=== PATIENT | female | born 1950 | race Caucasian/White ===

== ENCOUNTER 2021-11-23 10:49 | Outpatient (CLI) | payer MEDICARE | END 2021-11-23 10:50 | disposition home or self-care (01) | LOC: BICMAMMO 10:49 | PROVIDERS: ATTEND Family Medicine | DX: Z12.31 Encounter for screening mammogram for malignant neoplasm of breast (principal); Z13.820 Encounter for screening for osteoporosis; M85.851 Other specified disorders of bone density and structure, right thigh | CPT/HCPCS: 77063; 77067; 77080 ==

== ENCOUNTER 2023-06-08 12:27 | Outpatient (CLI) | payer MEDICARE ==
[2023-06-08] MEDS ORDERED: Iopamidol 370 76% 100 ML VIAL ONE (13:48)
== END 2023-06-08 12:28 | disposition home or self-care (01) ==
LOC: CT 12:27
PROVIDERS: ATTEND Student in an Organized Health Care Education/Training Program
DX: R14.0 Abdominal distension (gaseous) (principal); K66.8 Other specified disorders of peritoneum; Z90.710 Acquired absence of both cervix and uterus; R18.8 Other ascites; K76.9 Liver disease, unspecified
CPT/HCPCS: 74178; 82565

== ENCOUNTER 2023-06-19 14:49 | Outpatient (CLI) | payer MEDICARE | END 2023-06-19 14:50 | disposition home or self-care (01) | LOC: CT 14:49 | PROVIDERS: ATTEND Student in an Organized Health Care Education/Training Program | DX: C80.1 Malignant (primary) neoplasm, unspecified (principal); R16.0 Hepatomegaly, not elsewhere classified | CPT/HCPCS: 71270 ==

== ENCOUNTER → 2023-06-25 | Day surgery (SDC) | payer MEDICARE ==
[~2023-06-25] MED LIST: FLU VACC QS2023(65UP)/MF59C/PF 60 MCG/0.5 ML SYRINGE IM ONE; Lidocaine 1% PF 5 ML VIAL ONE; Midazolam HCl 2 mg/2 ml Vial ONE; Sodium Bicarbonate 2.5 MEQ/5 ML SDV ONE; fentaNYL 50 mcg/mL 1 mL Vial ONE
[2023-06-25 12:31] VITALS: BP 154/76; TEMP 98.1
[2023-06-25 12:42] VITALS: BMI 35.9
== END ==
LOC: CT 08:25
PROVIDERS: ATTEND Student in an Organized Health Care Education/Training Program
PROC: 0FD03ZX Extraction of Liver, Percutaneous Approach, Diagnostic (ICD-10-PCS; principal; 2023-06-25)
DX: C22.0 Liver cell carcinoma (principal); K76.9 Liver disease, unspecified; I10 Essential (primary) hypertension; E78.5 Hyperlipidemia, unspecified; Z79.899 Other long term (current) drug therapy; Z88.0 Allergy status to penicillin; Z01.812 Encounter for preprocedural laboratory examination
CPT/HCPCS: 47000; 77012; 85025; 85610; 85730; 88333; 88334; J3010; 36415; 88307; 88341; 88342; 88360; J2250

== ENCOUNTER 2024-08-04 18:04 | Emergency (ER) | payer MEDICARE ==
[2024-08-04 20:21] LABS: #Basophils 0.05 10x3/uL (0.0-0.2); %Basophils 0.6 % (0.0-1.0); %Eosinophils 1.4 % (0.0-10.0); %Lymphocytes 16.4 % (21.0-51.0); %Monocytes 7.7 % (0.0-10.0); %Neutrophils 73.6 % (42.0-75.0); Hemoglobin 12.1 g/dL (12.0-16.0); Mean Corpuscular HGB CONC 32.7 g/dL (32.0-36.0); Mean Corpuscular Hemoglobin 31.3 pg (27.0-31.0); Mean Corpuscular Volume 95.9 fL (78.0-98.0); Mean Platelet Volume 10.4 fL (7.4-10.4); Platelet Count 225 10x3/uL (130-400); RBC Distribution Width 13.4 % (11.5-14.5); Red Blood Cell (RBC) Count 3.86 mill/uL (4.20-5.40)
[2024-08-04] MEDS ORDERED: Cyclobenzaprine 10 MG TAB ONE (20:32)
[2024-08-04 20:38] LABS: ALT (SGPT) 17 U/L (8-55); AST (SGOT) 17 U/L (5-34); Albumin 4.5 g/dL (3.4-4.8); Alkaline Phosphatase 104 U/L (40-110); Anion Gap 13 mmol/L (10-20); BUN (Urea Nitrogen) 16 mg/dL (9.8-20.1); Bilirubin, Total 1.3 mg/dL (0.2-1.2); Calc. Creatinine Clearance 0 mL/min (70-130); Calcium 10.1 mg/dL (7.8-10.44); Carbon Dioxide 27 mmol/L (23-31); Chloride 98 mmol/L (98-107); Estimated GFR 47; Globulin 3.2 g/dL (2.4-3.5); Glucose 121 mg/dL (83-110); Potassium 3.5 mmol/L (3.5-5.1); Protein, Total 7.7 g/dL (5.8-8.1); Sodium 134 mmol/L (136-145)
[2024-08-04] MEDS ORDERED: Lidocaine 4% Patch ONE (20:49)
[2024-08-04] MEDS ORDERED: HYDROcodone/Acetaminophen 5/325 mg Tablet ONE (21:17)
== END 2024-08-04 21:23 | disposition home or self-care (01) ==
LOC: ERS 18:04
DX: S33.5XXA Sprain of ligaments of lumbar spine, initial encounter (principal); X50.1XXA Overexertion from prolonged static or awkward postures, initial encounter
CPT/HCPCS: 36415; 80053; 85025; 99283